=== PATIENT | male | born 1970 | race American Indian/Alaskan Native ===

== ENCOUNTER 2018-12-01 20:31 | Emergency (ER) | payer SELFPAY ==
[2018-12-01 21:03] VITALS: BP 154/99
[2018-12-01 21:48] LABS: Basophils # (Auto) 0.1 K/mm3 (0.0-0.1); Basophils % (Auto) 0.8 % (0.0-1.8); Eosinophils # (Auto) 0.2 K/mm3 (0.0-0.4); Lymphocytes # (Auto) 2.6 K/mm3 (1.2-5.4); Lymphocytes % (Auto) 30.9 % (13.4-35.0); Mean Corpuscular HGB Conc 36 % (32-34); Mean Corpuscular Volume 92 fl (84-94); Monocytes # (Auto) 0.5 K/mm3 (0.0-0.8); Monocytes % (Auto) 5.4 % (0.0-7.3); Platelet Count 259 K/mm3 (140-440); Red Blood Count 4.87 M/mm3 (3.65-5.03); Red Cell Distribution Width 14.2 % (13.2-15.2)
[2018-12-01 21:54] LABS: Hematocrit 44.7 % (35.5-45.6); Hemoglobin 16.1 gm/dl (11.8-15.2)
[2018-12-01 22:14] LABS: Calcium 8.8 mg/dL (8.4-10.2)
--- NOTE | 2018-12-01 22:59 | Emergency Department Report ---
HPI - General Chief Complaint: Chest Pain Time Seen by Provider: 12/01/18 22:49 - HPI HPI: 48-year-old -[place] male presents to the emergency department for a refill of his metoprolol. 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 His bus company manager is Dr. Omar Kenney. He has been out of the metoprolol for the past few days. Sometimes he feels like his heart is racing but currently denies any symptoms including any chest pain, shortness of breath, back pain. He says that he is here only to get a refill of his medication. ED Past Medical Hx - Past Medical History Hx Hypertension: Yes Additional medical history: A-fib - Surgical History Past Surgical History?: No - Social History Smoking Status: Current Every Day Smoker Substance Use Type: Marijuana - Medications Home Medications: Home Medications Medication Instructions Recorded Confirmed Last Taken Type Lisinopril 20 mg PO DAILY 12/01/18 12/01/18 Unknown History Metoprolol Tartrate 50 mg PO BID #60 12/01/18 Unknown Rx ED Review of Systems ROS: Stated complaint: RAPID HEARTBEAT/MED REFILL Other details as noted in HPI Comment: All other systems reviewed and negative Constitutional: denies: chills, fever Eyes: denies: eye pain, vision change ENT: denies: ear pain, throat pain Respiratory: denies: cough, shortness of breath Cardiovascular: denies: chest pain, edema Gastrointestinal: denies: abdominal pain, vomiting Genitourinary: denies: dysuria, discharge Musculoskeletal: denies: back pain, arthralgia Skin: denies: rash, lesions Neurological: denies: headache, weakness Physical Exam - Physical Exam Vital Signs: Vital Signs 12/01/18 21:00 Temperature 97.8 F Pulse Rate 76 Respiratory 20 Rate Blood Pressure 154/99 O2 Sat by Pulse 98 Oximetry Physical Exam: GENERAL: The patient is well-developed well-nourished. HEENT: Normocephalic. Atraumatic. Patient has moist mucous membranes. EYES: Extraocular motions are intact. NECK: Supple. Trachea is midline. CHEST/LUNGS: Clear to auscultation. There is no respiratory distress noted. HEART/CARDIOVASCULAR: Regular. There is no tachycardia. There is no obvious murmur. ABDOMEN: There is no abdominal distention. SKIN: Skin is warm and dry. NEURO: The patient is awake, alert, and oriented. The patient is cooperative. The patient has no focal neurologic deficits. The patient has normal speech. MUSCULOSKELETAL: There is no tenderness or deformity. There is no limitation range of motion. There is no evidence of acute injury. ED Course Vital Signs 12/01/18 21:00 Temperature 97.8 F Pulse Rate 76 Respiratory 20 Rate Blood Pressure 154/99 O2 Sat by Pulse 98 Oximetry ED Medical Decision Making - Lab Data Result diagrams: 12/01/18 21:23 12/01/18 21:23 - EKG Data -: EKG Interpreted by Me EKG shows normal: sinus rhythm, axis, intervals, QRS complexes, ST-T waves Rate: normal - EKG Data When compared to previous EKG there are: previous EKG unavailable Interpretation: normal EKG - Medical Decision Making As soon as I got into the room to see the patient he made it very clear that the only reason he came to the emergency department was for a medication refill. He denies any current palpitations, chest pain, back pain or any current symptoms. The patient has been out of his metoprolol 50 mg the past 2 days. He does admit that previously he was feeling like he had some palpitations. He has good follow-up with Dr. Kenney, cardiology, but says that he is having an insurance issue. He is on metoprolol secondary to elevated blood pressure and history of paroxysmal atrial fibrillation. EKG is normal without ST elevation OK, ischemia or dysrhythmia. Since patient is asymptomatic, I did not feel that any chest x- ray was necessary at this time. Through triage patient had a CBC and metabolic panel came back normal. He was given a one-month refill of his metoprolol and instructed to follow up with both primary care and cardiology. He will return to the ER with any development of chest pain, palpitations, shortness of breath, or with any acute distress. - Differential Diagnosis dysrhythmia, OK, costochondritis Critical Care Time: No Critical care attestation.: If time is entered above; I have spent that time in minutes in the direct care of this critically ill patient, excluding procedure time. ED Disposition Clinical Impression: History of atrial fibrillation, Medication refill Disposition: - TO HOME OR SELFCARE Is pt being admited?: No Condition: Stable Additional Instructions: Please follow-up with your primary care physician and/or bus company manager as soon as possible. Return to the emergency department with any development of chest pain, palpitations, or with any acute distress. Prescriptions: Metoprolol Tartrate 50 mg PO BID #[id number] Referrals: OMAR KENNEY MD [Staff Physician] - 3-5 Days Time of Disposition: 22:59
== END 2018-12-01 23:24 | disposition home or self-care (01) ==
LOC: ED 20:31
DX: I48.91 Unspecified atrial fibrillation (principal); I10 Essential (primary) hypertension; F17.200 Nicotine dependence, unspecified, uncomplicated; F12.10 Cannabis abuse, uncomplicated
CPT/HCPCS: 36415; 80048; 85025; 93005; 93010